=== PATIENT | female | born 1995 | race Caucasian/White ===

== ENCOUNTER 2023-12-12 21:48 | Emergency (ER) | payer OTHER ==
[~2023-12-12] VITALS: Ht 167.6 cm; Wt 85.0 kg
[2023-12-12] MEDS ORDERED: CEFTRIAXONE/SODIUM CHLORIDE 2 GM/100 ML PIGGYBACK IV ONE (22:00)
[2023-12-12] MEDS ORDERED: LACTATED RINGER'S 1,000 ML IV ONE (22:00)
[2023-12-12] MEDS ORDERED: DAPTOmycin 500 MG/10 ML VIAL IV ONE (22:00)
[2023-12-12 22:19] LABS: BASOPHILS 0.3 % (0-2); EOSINOPHILS 0.3 % (0-6)
[2023-12-12 22:23] LABS: HEMATOCRIT 32.8 % (35.0-50.0); HEMOGLOBIN 10.1 g/dL (12.0-18.0); LYMPHOCYTES 20.9 % (24-44); MCH 24.5 (27-36); MCHC 30.9 g/dl (30-36); MCV 79.4 fl (81-99); MONOCYTES 8.4 % (0-12); NEUTROPHILS 70.1 % (39-80); PLATELET COUNT 766 K/uL (140-440); RBC 4.13 M/ul (4.3-5.7); RDW 19.5 (10.5-15.0)
[2023-12-12] MEDS ORDERED: HYDROmorphone HCL 1 MG/ML SYR IV PRN (22:30)
[2023-12-12 22:33] LABS: ALBUMIN 1.6 g/dL (3.4-5.0); ALBUMIN/GLOBULIN RATIO 0.29 (1.1-2.4); ANION GAP 13.7 (7-21); BILIRUBIN, TOTAL 0.5 ng/dL (0.2-1.0); CALCIUM 8.3 mg/dL (8.5-10.1); CREATININE, SERUM 0.85 mg/dL (0.55-1.02); POTASSIUM 3.7 mmol/L (3.5-5.1); PROTEIN, TOTAL 7.1 g/dL (6.4-8.2)
[2023-12-12 22:35] LABS: INR 1.24 (0.80-1.30); PARTIAL THROMBOPLASTIN TIME 36.6 Sec (22.9-41.3); PROTIME 14.9 Sec (11.2-14.2)
[2023-12-12 22:40] LABS: LACTIC ACID, BLOOD 2.2 mmol/L (0.4-2.0)
[2023-12-13] MEDS ORDERED: LIDOCAINE 2% VISCOUS 6 ML SYR ONE (00:13)
[2023-12-13] MEDS ORDERED: LIDOCAINE 2% VISCOUS 6 ML SYR TOP ONE (00:15)
[2023-12-13] MEDS ORDERED: LORazepam 2 MG/ML VIAL ONE (00:24)
[2023-12-13] MEDS ORDERED: LORazepam 2 MG/ML VIAL IV ONE (00:30)
[2023-12-13 00:48] LABS: BILIRUBIN, URINE NEGATIVE (negative); BLOOD/HGB, URINE LARGE (Negative); KETONE, URINE NEGATIVE (Negative); LEUK ESTERASE, URINE MODERATE (negative); NITRITE, URINE POSITIVE (negative); PH, URINE 8.5 (5-7)
[2023-12-13 01:01] LABS: BACTERIA, URINE 3+ /hpf (negative); CASTS, URINE NONE SEEN \\lpf; COLLECTION TYPE, URINE CLEAN CATCH; CRYSTALS, URINE NONE SEEN (0-1+); EPITHELIAL CELLS, URINE SQUAMOUS 1+ /lpf (0-1+); REFLEX CULTURE, URINE Yes (No); WHITE BLOOD CELLS, URINE >50 /HPF (0-5)
[2023-12-13] MEDS ORDERED: PAXIL40 MG PO (01:07)
[2023-12-13] MEDS ORDERED: CYCLOBENZAPRINE10 MG PO (01:08)
[2023-12-13] MEDS ORDERED: QUETIAPINE FUMA50 MG PO (01:11)
[2023-12-13] MEDS ORDERED: PAROXETINE HCL10 MG PO (01:13)
[2023-12-13] MEDS ORDERED: LACTATED RINGER'S 1,000 ML IV ONE (01:15)
[2023-12-13] MEDS ORDERED: AMITRIPTYLINE H25 MG PO (01:15)
[2023-12-13] MEDS ORDERED: PERCOCET 5-3251 EACH PO (01:16)
[2023-12-13] MEDS ORDERED: FENTANYL CITRATE-0.9 % NACL/PF 100 ML IV SCH (02:15)
[2023-12-13 02:35] LABS: AMPHETAMINES, URINE NEGATIVE (NEGATIVE); BARBITURATES, URINE NEGATIVE (NEGATIVE); BENZODIAZEPINE, URINE NEGATIVE (NEGATIVE); BUPRENORPHINE, URINE NEGATIVE (NEGATIVE); CANNABINOID, URINE POSITIVE (NEGATIVE); COCAINE, URINE NEGATIVE (NEGATIVE); ECSTASY, URINE NEGATIVE (NEGATIVE); FENTANYL, URINE NEGATIVE (NEGATIVE); METHADONE, URINE POSITIVE (NEGATIVE); OPIATES, URINE POSITIVE (NEGATIVE); OXYCODONE, URINE POSITIVE (NEGATIVE); PHENCYCLIDINE, URINE NEGATIVE (NEGATIVE)
[2023-12-13 03:10] VITALS: BP 107/80
--- NOTE | 2023-12-13 12:26 | EKG ---
[facility] [address] [facility] [place] [address] Signed Sinus tachycardia with short [place] Nonspecific ST abnormality Abnormal ECG No previous ECGs available Confirmed by Reji Du MD ([id number]) on 12/13/2023 12:26:04 PM Electronically Signed By: REJI DU MD 12/13/23 1226 PATIENT NAME: LINDA REAL Electrocardiogram DATE OF : [birth year] PHYSICIAN: REJI DU MD REPORT #: [id number] REPORT IS CONFIDENTIAL AND NOT TO BE RELEASED WITHOUT AUTHORIZATION
== END 2023-12-13 03:10 | disposition short-term general hospital (02) ==
LOC: ED 21:48
PROVIDERS: Internal Medicine
DX: A41.9 Sepsis, unspecified organism (principal); N39.0 Urinary tract infection, site not specified; L89.321 Pressure ulcer of left buttock, stage 1; L89.311 Pressure ulcer of right buttock, stage 1; L89.151 Pressure ulcer of sacral region, stage 1; Z79.899 Other long term (current) drug therapy
CPT/HCPCS: 36415; 71045; 74177; 80053; 80307; 81001; 83605; 84703; 85025; 85610; 85730; 93005; 93010; J0696; J0878; J1170; J2060; J7121